=== PATIENT | female | born 1950 | race Caucasian/White ===

== ENCOUNTER → 2021-07-28 08:44 | Outpatient (CLI) | payer MEDICARE, SELFPAY ==
[2021-07-28 11:18] LABS: Influenza A - CEPHEID Flu A NEGATIVE (NEGATIVE); Influenza B - CEPHEID Flu B NEGATIVE (NEGATIVE)
[2021-07-28 11:38] LABS: COVID-19 CEPHEID PCR (VTM/NP) Negative (Negative)
== END ==
PROVIDERS: Visit Provider Physician Assistant
DX: Z20.822 Contact with and (suspected) exposure to COVID-19 (principal)
CPT/HCPCS: 87502; C9803; U0003

== ENCOUNTER → 2021-12-01 10:31 | Outpatient (CLI) | payer MEDICARE, SELFPAY ==
[2021-12-01 16:31] LABS: COVID-19 CEPHEID PCR (VTM/NP) Negative (Negative)
== END ==
PROVIDERS: Visit Provider Family Medicine Sleep Medicine
DX: Z20.822 Contact with and (suspected) exposure to COVID-19 (principal)
CPT/HCPCS: C9803; U0003; U0005

== ENCOUNTER → 2022-05-19 12:46 | Outpatient (CLI) | payer MEDICARE, OTHER, SELFPAY ==
[2022-05-19 14:09] LABS: COVID-19 CEPHEID PCR (VTM/NP) Negative (Negative)
== END ==
PROVIDERS: Referring Provider Internal Medicine Pulmonary Disease; Visit Provider Internal Medicine Pulmonary Disease
DX: Z01.812 Encounter for preprocedural laboratory examination (principal); Z20.822 Contact with and (suspected) exposure to COVID-19
CPT/HCPCS: C9803; U0003; U0005